=== PATIENT | male | born 1940 | race Caucasian/White ===

== ENCOUNTER 2020-03-25 06:45 | Outpatient (CLI) | payer MEDICARE | END 2020-03-25 06:46 | disposition critical access hospital (66) | LOC: EMS 06:45 | PROVIDERS: ATTEND Surgery | DX: R40.20 Unspecified coma (principal); R06.81 Apnea, not elsewhere classified | CPT/HCPCS: A0425; A0433 ==

== ENCOUNTER 2020-03-25 07:00 | Emergency (ER) | payer MEDICARE ==
--- NOTE | 2020-03-25 07:33 | ED Physician Documentation ---
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 He awoke at 3:00 in the morning to take his medications and he called her at a about 5:00 in the morning complaining of some shortness of breath when she arrived at the house at 6 AM he asked her to call the ambulance. When she left the room to call she came back to find him on the ground and unresponsive. There is approximately 5 minutes of time elapsed between the onset of arrest and initiation of CPR. Medics were able to initiate CPR, intubate the patient, shocked him twice, and gave epinephrine with return of spontaneous circulation. The patient has made some effort to medrano on the tube, he was administered fentanyl and Versed for sedation. Review of Systems Unable to obtain: Intubated PD PAST MEDICAL HISTORY - Allergies Allergies/Adverse Reactions: Allergies Allergy/AdvReac Type Severity Reaction Status Date / Time Unable to Assess Allergy Verified 03/25/20 07:03 PD ED PE NORMAL - Vitals Vital signs reviewed: Yes (normal) - General General: No acute distress, Other (Thin smaller male intubated and motionless) - HEENT HEENT: Atraumatic - Cardiac Cardiac: RRR, No murmur - Respiratory Respiratory: No respiratory distress, Clear bilaterally - Abdomen Abdomen: Normal bowel sounds, Soft - Derm Derm: Normal color, Warm and dry, No rash - Extremities Extremities: No deformity, No edema Results - Vitals Vitals: Vital Signs - 24 hr 03/25/20 03/25/20 03/25/20 07:03 07:17 07:19 Temperature 36.6 C 36.6 C 33.5 C L Heart Rate 93 85 Respiratory 12 14 Rate Blood Pressure 109/62 104/65 O2 Saturation 100 100 03/25/20 03/25/20 07:25 07:29 Temperature 35.5 C L Heart Rate 79 83 Respiratory 24 Rate Blood Pressure 94/48 L O2 Saturation 96 Oxygen O2 Source Mechanical ventilator Oxygen Flow Rate 12 - EKG (time done) 0713 Rate: Rate (enter#) (87) Rhythm: NSR Intervals: LBBB Compare to prior EKG: Old EKG unavailable Computer interpretation: Agree with computer - Labs Labs: Laboratory Tests 03/25/20 07:04 POC Whole Bld Glucose 210 H - Rads (name of study) chest Radiology: Prelim report reviewed (Pression: Acceptable endotracheal tube pl acement. Cardiomegaly with pulmonary congestion and mild interstitial edema.), EMP read indepedently, See rad report Procedures - IVC sono (time) 0713 Bedside IVC sono: IVC measures (cm) (1.77), IVC collapsed c insp (cm) (0.83), Euvolemia PD MEDICAL DECISION MAKING - ED course Complexity details: reviewed results, re-evaluated patient, considered differential, d/w family ED course: 79 y/o male unknown to us has had a witnessed arrest this morning with v-fib arrest with ROSC with radha and epi. He arrives to the ED with ET tube in place being mechanically ventilated and with an IV running. He does not appear traumatic. His eyes are pinpoint and he is making an occasional effort to breath. His blood is thick with the femoral draw clotting and he is given a bolus of heparin. Departure - Departure Disposition: 02 Transfer Acute Care Hosp Clinical Impression: Cardiac arrest with ventricular fibrillation Condition: Critical
--- NOTE | 2020-03-25 07:58 | XRAY Report ---
PROCEDURE: Chest for Line Placement INDICATIONS: CPR IN PROGRESS INTUBATED TECHNIQUE: One view of the chest was acquired. COMPARISON: None FINDINGS: Surgical changes and devices: ET tube is proximally 4 cm superior to the layo. Left shoulder arthr oplasty. Lungs and pleura: No pleural effusions or pneumothorax. Cephalization of pulmonary vasculature bilat eral perihilar opacities with interstitial prominence concerning for CHF. Mediastinum: Mediastinal contours appear normal. Heart mildly enlarged Bones and chest wall: No suspicious bony lesions. Overlying soft tissues appear unremarkable. IMPRESSION: 1. ET tube proximate 4 cm superior to the layo. 2. CHF. Reviewed by: Yanni Bolaños MD, PhD on 03/25/2020 7:57 AM PDT Approved by: Yanni Bolaños MD, PhD on 03/25/2020 7:57 AM PDT Station ID: [id number]
[2020-03-25 08:10] VITALS: BP 111/55
[2020-03-25 08:35] LABS: BASOPHILS % (AUTO) 1.2 %; EOSINOPHILS % (AUTO) 1.1 %; HGB - HEMOGLOBIN 11.2 g/dL (14.0-18.0); LYMPHOCYTES % (AUTO) 10.3 %; MEAN CORPUSCULAR HEMOGLOBIN 29.6 pg (27.0-31.0); MEAN CORPUSCULAR HGB CONC 30.3 g/dL (32.0-36.0); MEAN CORPUSCULAR VOLUME 97.6 fL (80.0-94.0); MEAN PLATELET VOLUME 10.6 fL (7.4-11.4); MONOCYTES % (AUTO) 1.7 %; NEUTROPHILS % (AUTO) 83.5 %; PLT - PLATELET COUNT 137 10^3/uL (130-450); RED BLOOD COUNT 3.79 10^6/uL (4.70-6.10); RED CELL DISTRIBUTION WIDTH 14.1 % (12.0-15.0); WHITE BLOOD COUNT 8.3 x10^3/uL (4.8-10.8)
[2020-03-25 08:38] LABS: ABNORMAL LYMPHS % (MANUAL) 0 %
[2020-03-25 09:00] LABS: BAND NEUTROPHILS % (MANUAL) 1 %; LYMPHOCYTES # (MANUAL) 1.4 10^3/uL (1.5-3.5); LYMPHOCYTES % (MANUAL) 17 %; MONOCYTES # (MANUAL) 0.1 10^3/uL (0.0-1.0)
[2020-03-25 09:01] LABS: PLATELET ESTIMATE, MANUAL NORMAL (130-450,000) (NORMAL)
[2020-03-25 09:07] LABS: DIFFERENTIAL COMMENT MANUAL DIFFERENTIAL; PLATELET MORPHOLOGY NORMAL APP (NORMAL)
== END 2020-03-25 08:25 | disposition short-term general hospital (02) ==
LOC: ED 07:00
DX: I46.9 Cardiac arrest, cause unspecified (principal); I49.01 Ventricular fibrillation; I44.7 Left bundle-branch block, unspecified; I51.7 Cardiomegaly
CPT/HCPCS: 36415; 51702; 71045; 80053; 82803; 83690; 83880; 84484; 85025; 93005; 94002; 94770; 99291